=== PATIENT | male | born 1965 | race Caucasian/White ===

== ENCOUNTER 2024-02-27 08:26 | Outpatient (CLI) | payer OTHER, SELFPAY ==
--- NOTE | 2024-02-27 09:00 | CRLHL7_ITS ---
For Patients: As a result of the Century Cures Act, medical imaging exams and procedure reports are released immediately into your electronic medical record. You may view this report before your referring provider. If you have questions, please contact your health care provider. Indication: COCCYX PAIN, MORE THAN 10 YEARS, WORSE OVER LAST 6 MONTHS Technique: CT Pelvis 102CC ISOVUE 370 Please note that all CT scans at this facility use dose modulation, iterative reconstruction, and/or weight-based dosing when appropriate to reduce radiation dose to as low as reasonably achievable. Comparison: X-ray 12/20/2023 Findings: Atherosclerotic changes. No aneurysm. The bladder is partially distended. Prostate calcifications. No dilated bowel loops. The appendix is unremarkable. No fluid or abscess. No adenopathy. Anterior spurring lower lumbar spine with facet degeneration. The coccyx is intact without fracture deformity or intrinsic lesion. Chronic incidental subchondral sclerosis medial pubic bone adjacent to the symphysis pubis. Incidental bone island within the right femoral head and left acetabulum. Impression: No suspicious findings. Intact coccyx without fracture deformity. Please note that all CT scans at this facility use dose modulation, iterative reconstruction, and/or weight-based dosing when appropriate to reduce radiation dose to as low as reasonably achievable. Dictated by Rick Hernandez MD @ 02/27/2024 12:23:18 PM (Electronically Signed)
== END 2024-02-27 08:27 | disposition home or self-care (01) ==
LOC: CT 08:27
PROVIDERS: PCP Registered Nurse; Visit Provider Registered Nurse
DX: M53.3 Sacrococcygeal disorders, not elsewhere classified (principal)
CPT/HCPCS: 72193; Q9967

== ENCOUNTER 2024-02-29 08:18 | Outpatient (CLI) | payer OTHER, SELFPAY | END 2024-02-29 08:19 | disposition home or self-care (01) | PROVIDERS: PCP Registered Nurse; Visit Provider Registered Nurse | DX: R73.01 Impaired fasting glucose (principal); Z13.6 Encounter for screening for cardiovascular disorders; Z12.5 Encounter for screening for malignant neoplasm of prostate | CPT/HCPCS: 80053; 80061; G0103 ==

== ENCOUNTER 2024-07-31 10:00 | Outpatient (CLI) | payer OTHER, SELFPAY ==
--- NOTE | 2024-07-31 10:15 | MR_ITS ---
[address] [address] Phone:?[phone] Fax:?[phone] Referring Physician Information: NICOLE De La Cruz [address] [facility] [address] Phone:?[phone] Fax:?[phone] Patient:Madelyn Hall D.O.B:?[id number] Sex:?Male Phone:?[phone] [facility] MRN:?[id number] Exam Date:?07/31/2024 EXAM: MRI of the LEFT SHOULDER, without contrast CLINICAL INFORMATION: Male, 59 years old, with left shoulder pain. INDICATION: Evaluate for internal derangement. PRIOR SURGERY: None reported. PLAIN FILMS: Shoulder radiographs dated 07/18/2024. COMPARISONS: No prior MRIs available. TECHNICAL INFORMATION: Using a 1.5T MR scanner and a localizing surface coil: coronal obliques: PD, T2, STIR sagittal obliques: PD, T2 axials: PD, T2 SEDATION: None CONTRAST: None FINDINGS: Bones: Proximal humerus: No fracture or marrow edema/pathology. No humeral Hill-Sachs or reverse Hill-Sachs lesion/impaction or contusion. Glenoid: No fracture or marrow edema/pathology. No osseous Bankart lesion. Rotator cuff and muscles/tendons: Supraspinatus: Mild supraspinatus tendinopathy, without tendon tear or muscle atrophy. Infraspinatus: Mild-moderate infraspinatus tendinopathy, without tendon tear or muscle atrophy. Teres minor: No tendinopathy, tear or atrophy. Subscapularis: Mild-moderate tendinopathy of the superior distal subscapularis without tendon tear or muscle strain. Deltoid: No strain or atrophy. Coracoacromial arch: Acromion morphology: The acromion has type II morphology. No discrete subacromial osseous spur or os acromiale. Acromiohumeral space: The acromiohumeral space is within normal limits. Coracohumeral space: The coracohumeral space is within normal limits. Acromioclavicular joint: Joint: Mild AC joint arthropathy, without evidence of supraspinatus impingement. Ligaments: Coracoclavicular ligaments are intact. Bursae: Subacromial-subdeltoid: Mild subacromial-subdeltoid bursal thickening/edema. Subcoracoid: No convincing subcoracoid bursal thickening/bursitis. Biceps tendon: Nonvisualization of the biceps long head tendon. Glenohumeral joint: Effusion/cyst: Small glenohumeral joint effusion. Articular cartilage: Humeral head: Mild thinning the articular cartilage throughout the medial aspect of the humeral head with minimal inferomedial marginal osteophytosis. Glenoid: Mild thinning the glenoid articular cartilage, with mild posterior marginal osteophytosis. Loose bodies: No discrete intra-articular body within the joint. Labrum:?Intrasubstance degeneration poorly defined tearing of the superior labrum measuring 2.1 cm (coronal PD series 6 images 12-18). The labrum is otherwise intact. No paralabral cyst. Inferior glenohumeral ligament/axillary pouch:?Moderate thickening of inferior capsuloligamentous structures (coronal PD series 6 images 15-20). Additionally, there is soft tissue thickening throughout the rotator interval and subcoracoid recess (sagittal PD series 8 images 11-18). IMPRESSION: 1. Full-thickness avulsion/disruption of the biceps long head tendon, with significant tendon retraction. 2. Intrasubstance degeneration and poorly defined tearing throughout the superior labrum measuring 2.1 cm. 3. Findings in keeping with adhesive capsulitis. 4. Slight approaching mild osteoarthritis of the glenohumeral joint with a small joint effusion. 5. Mild-moderate infraspinatus & subscapularis mild supraspinatus tendinopathy. No rotator cuff tendon tear. 6. Mild AC joint arthropathy with mild subacromial-subdeltoid bursal inflammation. However, the acromiohumeral space is normal. BC Electronically signed on 07/31/2024 11:34:00 AM by Kamran Merchant M.D.
== END 2024-07-31 10:01 | disposition home or self-care (01) ==
LOC: MRI 10:01
PROVIDERS: PCP Registered Nurse; Visit Provider Physician Assistant Surgical
DX: M25.512 Pain in left shoulder (principal); S43.431A Superior glenoid labrum lesion of right shoulder, initial encounter; M75.02 Adhesive capsulitis of left shoulder; M19.012 Primary osteoarthritis, left shoulder; S49.92XA Unspecified injury of left shoulder and upper arm, initial encounter
CPT/HCPCS: 73221